=== PATIENT | female | born 1960 | race African-American/Black ===

== ENCOUNTER 2017-05-19 07:53 | Inpatient (IN) | payer OTHER ==
[~2017-05-19] VITALS: Ht 172.7 cm; Wt 120.2 kg
[2017-05-19] MEDS ORDERED: OXYC20TA72 PO (10:23)
[2017-05-19] MEDS ORDERED: APIX5TAB PO (10:23)
[2017-05-19] MEDS ORDERED: ATOR10TA68 PO (10:23)
[2017-05-19] MEDS ORDERED: ASPI-1063 PO (10:23)
[2017-05-19] MEDS ORDERED: FLO110 INH (10:23)
[2017-05-19] MEDS ORDERED: BUSP15TA3 PO (10:23)
[2017-05-19] MEDS ORDERED: OMEP40CA33 PO (10:23)
[2017-05-19] MEDS ORDERED: DOCU250C PO (10:23)
[2017-05-19] MEDS ORDERED: NITR0.4T6 SL (10:23)
[2017-05-19] MEDS ORDERED: AZEL137S7 NS (10:23)
[2017-05-19] MEDS ORDERED: SPIR25TA4 PO (10:23)
[2017-05-19] MEDS ORDERED: CARV25TA55 PO (10:23)
[2017-05-19] MEDS ORDERED: CARI350T27 PO (10:23)
[2017-05-19] MEDS ORDERED: CHOL500013 PO (10:23)
[2017-05-19] MEDS ORDERED: GABA-531 PO (10:23)
[2017-05-19] MEDS ORDERED: ISOS60TA4 PO (10:23)
[2017-05-19] MEDS ORDERED: SPIR25TA PO (10:23)
[2017-05-19] MEDS ORDERED: BENA40TA2 PO (10:23)
[2017-05-19] MEDS ORDERED: POLYMYXIN 500,000/BACIT.10,000 UNITS in NS IRR 1 L IR ONE (11:06)
[2017-05-19] MEDS ORDERED: LR 1,000 ML IV.SOLN IV ONE (11:15)
[2017-05-19] MEDS ORDERED: ONDANSETRON HCL 4 MG/2 ML VIAL IVP ONE (11:15)
[2017-05-19] MEDS ORDERED: SUCCINYLCHOLINE CHLORIDE 20 MG/ML(QUELICIN) IVP ONE (11:15)
[2017-05-19] MEDS ORDERED: MIDAZOLAM HCL 5 MG/5 ML VIAL IVP ONE (11:15)
[2017-05-19] MEDS ORDERED: PROPOFOL 200MG/ 20ML VIAL (DIPRIVAN) IV ONE (11:15)
[2017-05-19] MEDS ORDERED: fentaNYL CITRATE 250 MCG/5 ML AMP IV ONE (11:15)
[2017-05-19] MEDS ORDERED: BUPIVACAINE /EPINEPHRINE/PF 0.5% 30 ML VIAL INJ ONE (11:15)
[2017-05-19] MEDS ORDERED: NS 1000 ML BAG IV ONE (11:15)
[2017-05-19] MEDS ORDERED: THROMBIN (BOVINE) 5000 UNITS/ VIAL TP ONE (11:15)
[2017-05-19] MEDS ORDERED: CLINDAMYCIN PHOSPHATE 900 mg/50mL D5W IV ONE (11:15)
[2017-05-19] MEDS ORDERED: SEVOFLURANE 15 MIN GAS INH ONE (11:15)
[2017-05-19] MEDS ORDERED: LR 1,000 ML IV SCH (12:18)
[2017-05-19] MEDS ORDERED: METOCLOPRAMIDE HCL 10 MG/2 ML VIAL IVP PRN ×2 (12:30→12:45)
[2017-05-19] MEDS ORDERED: HYDROmorphone 2 MG/ML VIAL IVP PRN ×2 (12:30→12:45)
[2017-05-19] MEDS ORDERED: MEPERIDINE HCL/PF 25 MG/ML DISP.SYRIN IVP PRN (12:30)
[2017-05-19] MEDS ORDERED: HYDROmorphone 1 MG INJ. 1 MG/ML AMPUL IVP PRN ×2 (12:30→12:45)
[2017-05-19] MEDS ORDERED: DIPHENHYDRAMINE HCL 50 MG CAPSULE PO PRN ×2 (12:45→22:00)
[2017-05-19] MEDS ORDERED: TEMAZEPAM 15 MG CAPSULE PO PRN (12:45)
[2017-05-19] MEDS ORDERED: BISACODYL 10 MG/SUPPOSITORY RC PRN (12:45)
[2017-05-19] MEDS ORDERED: MILK OF MAGNESIA 30 ML UDC PO PRN (12:45)
[2017-05-19] MEDS ORDERED: METHOCARBAMOL 500 MG TABLET PO PRN (12:45)
[2017-05-19] MEDS ORDERED: OXYCODONE/ACETAMINOPHEN *10*mg/325 mg TABLET PO PRN (12:45)
[2017-05-19] MEDS ORDERED: NITROGLYCERIN 0.4 MG TAB.SUBL SL PRN (12:45)
[2017-05-19] MEDS ORDERED: ONDANSETRON HCL 4 MG/2 ML VIAL IVP PRN (12:45)
[2017-05-19 13:30] VITALS: BP_SYST 132
[2017-05-19] MEDS ORDERED: CEFAZOLIN 2 GM IVPB PREMIX 50 ML IV SCH (14:00)
[2017-05-19] MEDS: OXYCODONE/ACETAMINOPHEN *10*mg/325 mg TABLET PO PRN ×2 (14:44→20:46)
[2017-05-19] MEDS: GABAPENTIN 300 MG CAPSULE PO SCH ×2 (15:47→21:51)
[2017-05-19] MEDS: CARISOPRODOL 350 MG TABLET PO SCH ×2 (15:47→21:51)
[2017-05-19] MEDS ORDERED: DEXAMETHASONE SOD PHOSPHATE 10 MG/ML VIAL IVP ONE (17:45)
[2017-05-19] MEDS ORDERED: DIPHENHYDRAMINE INJ 50 MG/ML VIAL IVP ONE (17:45)
[2017-05-19] MEDS ORDERED: VANCOMYCIN HCL 1 GM/NS PREMIX 250 ML IV ONE (19:00)
[2017-05-19] MEDS: KCL 20 mEq in D5NS 1000 mL 1,000 ML IV SCH ×2 (19:04→22:30)
[2017-05-19] MEDS ORDERED: POTASSIUM CHLORIDE 20 MEQ TAB.PRT.SR PO ONE (19:15)
[2017-05-19 19:30] VITALS: BP_SYST 151
[2017-05-19] MEDS ORDERED: DOCUSATE SODIUM 250 MG CAPSULE PO SCH (21:00)
[2017-05-19] MEDS ORDERED: FLUTICASONE PROPIONATE 110 mCg/ACTUATION, 12 GM AER.W.ADAP INH SCH (21:00)
[2017-05-19] MEDS: DOCUSATE SODIUM 100 MG CAPSULE PO SCH (21:51)
[2017-05-19] MEDS: FAMOTIDINE 20 MG TABLET PO SCH (21:51)
[2017-05-19 23:40] VITALS: BP_SYST 120
[2017-05-20] MEDS: OXYCODONE/ACETAMINOPHEN *10*mg/325 mg TABLET PO PRN (02:43)
[2017-05-20 03:50] VITALS: BP_SYST 130
[2017-05-20] MEDS: KCL 20 mEq in D5NS 1000 mL 1,000 ML IV SCH ×2 (05:41→18:37)
[2017-05-20 07:58] LABS: CALCIUM 9.3 mg/dL (8.4-11.0); CREATININE 0.95 mg/dL (0.55-1.30); POTASSIUM 4.6 mmol/L (3.5-5.1)
[2017-05-20 08:00] VITALS: BP_SYST 119
[2017-05-20] MEDS: FAMOTIDINE 20 MG TABLET PO SCH ×2 (08:59→20:53)
[2017-05-20] MEDS: HYDROmorphone 1 MG INJ. 1 MG/ML AMPUL IVP PRN ×3 (08:59→17:40)
[2017-05-20] MEDS ORDERED: BENAZEPRIL HCL 20 MG TABLET (LOTENSIN) PO SCH (09:00)
[2017-05-20] MEDS ORDERED: SPIRONOLACTONE 25 MG TABLET (ALDACTONE) PO SCH ×2 (09:00)
[2017-05-20] MEDS: DOCUSATE SODIUM 100 MG CAPSULE PO SCH ×2 (09:00→20:51)
[2017-05-20] MEDS ORDERED: ISOSORBIDE MONONITRATE 30 MG TAB.ER.24H PO SCH (09:00)
[2017-05-20] MEDS ORDERED: ASPIRIN 81 MG TABLET(ECOTRIN) PO SCH (09:00)
[2017-05-20] MEDS: GABAPENTIN 300 MG CAPSULE PO SCH ×3 (09:00→20:52)
[2017-05-20] MEDS ORDERED: busPIRone HCL 5 MG TABLET PO SCH (09:00)
[2017-05-20] MEDS ORDERED: ATORVASTATIN 10 MG TABLET PO SCH (09:00)
[2017-05-20] MEDS ORDERED: CARVEDILOL 25 MG TABLET (COREG) PO SCH (09:00)
[2017-05-20] MEDS ORDERED: OMEPRAZOLE 20 MG CAPSULE.DR (PriLOSEC) PO SCH (09:00)
[2017-05-20] MEDS: CARISOPRODOL 350 MG TABLET PO SCH ×3 (09:01→20:53)
[2017-05-20] MEDS: CARVEDILOL 25 MG TABLET (COREG) PO SCH ×2 (09:01→20:52)
[2017-05-20 12:57] VITALS: BP_SYST 137
[2017-05-20 16:20] VITALS: BP_SYST 93
[2017-05-20 20:00] VITALS: BP_SYST 112
[2017-05-20 20:03] VITALS: BP_SYST 112
== END 2017-05-20 21:05 | disposition home or self-care (01) | DRG 516 ==
LOC: SMU 07:56
PROVIDERS: ADMIT Neurological Surgery; ATTEND Neurological Surgery
PROC: 01NB0ZZ Release Lumbar Nerve, Open Approach (ICD-10-PCS; principal; 2017-05-19 09:30)
DX: M48.06 Spinal stenosis, lumbar region (principal); I42.9 Cardiomyopathy, unspecified; I25.10 Atherosclerotic heart disease of native coronary artery without angina pectoris; I10 Essential (primary) hypertension; E87.6 Hypokalemia; Z98.1 Arthrodesis status; Z88.0 Allergy status to penicillin; Z88.2 Allergy status to sulfonamides; Z91.040 Latex allergy status
CPT/HCPCS: 36415; 76000; 80048; 83735-TC; 87081; 93005; 97116-GP; 97530-GP; C1713; J0330; J0690; J1100; J1170; J1200; J2250; J2405; J2704; J3010; J3370; J3490; J7030; J7120; Q0163